=== PATIENT | female | born 1990 | race African-American/Black ===

== ENCOUNTER 2022-05-18 00:58 | Emergency (ER) | payer MEDICAID, OTHER ==
[~2022-05-18] VITALS: Ht 154.9 cm; Wt 69.8 kg
[~2022-05-18 00:58] MED LIST: PROV10
[2022-05-18 01:25] VITALS: BP 123/82
[2022-05-18] MEDS ORDERED: KETOROLAC 60MG/2ML VIAL IM ONE (06:15)
[2022-05-18] MEDS ORDERED: CYCL5TAB PO (11:43)
[2022-05-18] MEDS ORDERED: IBUP-2029 MT (11:43)
== END 2022-05-18 11:57 | disposition home or self-care (01) ==
LOC: ER 00:58
DX: S33.5XXA Sprain of ligaments of lumbar spine, initial encounter (principal); S23.3XXA Sprain of ligaments of thoracic spine, initial encounter; S93.491A Sprain of other ligament of right ankle, initial encounter; Z88.0 Allergy status to penicillin; V43.52XA Car driver injured in collision with other type car in traffic accident, initial encounter; Y93.89 Activity, other specified; Y92.488 Other paved roadways as the place of occurrence of the external cause
CPT/HCPCS: 70450; 72070; 72100; 72170; 73610; 81025; 96372; 99284; J1885